=== PATIENT | male | born 1985 ===

== ENCOUNTER 2025-02-15 06:00 | Day surgery (SDC) | payer OTHER ==
[2025-02-07 08:34] LABS: BASO % 0.5 % (0.1-1.2); EOS # 0.14 (0.04-0.54); EOS % 2.2 % (0.7-7.0); LYMPH # 1.26 (1.18-3.74); LYMPH % 20.1 % (19.3-53.1); MEAN PLATELET VOLUME 10.20 fl (9.4-12.4); MONO # 0.57 (0.24-0.82); MONO % 9.1 % (4.7-12.5); NEUT # 4.26 (1.56-6.13); NEUT % 67.8 % (34.0-71.1); RED CELL DISTRIBUTION WIDTH 12.4 % (11.6-14.4)
[2025-02-07 08:36] LABS: URINE APPEARANCE Clear; URINE BILIRRUBIN Negative (NEGATIVE); URINE COLOR Yellow; URINE GLUCOSE Negative (NEGATIVE); URINE KETONE Negative (NEGATIVE); URINE LEUKOCYTE Negative; URINE NITRATE Negative; URINE PROTEIN Negative (NEGATIVE); URINE UROBILINOGEN 0.2 E.U./dl
[2025-02-07 08:37] LABS: URINE RBC 21.9 uL (0.0-20.8)
[2025-02-07 08:39] LABS: URINE BACTERIA 1.2 uL (0.0-1933); URINE BLOOD TRACE; URINE CAST 0.00 uL (0.0-1.40); URINE EPITHELIAL CELLS 1.0 uL (0.0-38.8); URINE WBC 1.3 uL (0.0-23.2)
[2025-02-07 08:52] VITALS: BP 112/76
[2025-02-07 08:57] LABS: INR 1.09
[2025-02-07 09:26] LABS: ALT/SGPT 34.0 U/L (12-78); AST/SGOT 18.0 U/L (15-37); BILIRUBIN TOTAL 1.12 mg/dL (0.3-1.2); BUN CREA RATIO 15.0 (7.0-25.0); CREATININE SERUM 1.19 mg/dL (0.70-1.30); GFR 67.71; GLOBULINA 2.5 G/DL (2.4-3.5); GLUCOSE FASTING 94.0 mg/dL (65-100); OSMOLALITY SERUM 285.0 MOSM/KG (275-295)
[~2025-02-15] VITALS: Ht 180.3 cm; Wt 97.1 kg
[2025-02-15] MEDS ORDERED: CEFAZOLIN SODIUM 1,000 MG VIAL ONE ×2 (06:34→07:15)
[2025-02-15] MEDS ORDERED: ENOXAPARIN SODIUM 40 MG/0.4 ML SYRINGE SUBCUTANEO ONE ×2 (06:34→07:15)
[2025-02-15] MEDS ORDERED: LIDOCAINE HCL 1%/EPINEPHRINE 20ML VIAL IJ ONE (07:56)
[2025-02-15] MEDS ORDERED: BUPIVACAINE HCL/MPF 0.5% 30ML VIAL ONE (07:56)
[2025-02-15] MEDS ORDERED: SUGAMMADEX SODIUM 200 MG/2 ML VIAL IV ONE (08:36)
[2025-02-15] MEDS ORDERED: ACETAMINOPHEN650 M2 PO (09:17)
[2025-02-15] MEDS ORDERED: TRAMADOL HCL50 MG PO (09:17)
[2025-02-15] MEDS ORDERED: MIRALAX510 GM PO (09:18)
[2025-02-15] MEDS ORDERED: TAMS0.4C PO (09:18)
[2025-02-15] MEDS ORDERED: SURFAK240 M1 PO (09:18)
[2025-02-15] MEDS ORDERED: NEURONTIN600 M1 PO (09:18)
== END 2025-02-15 11:45 | disposition home or self-care (01) ==
LOC: CIR.AMB 06:00
PROVIDERS: ATTEND Surgery
DX: K40.91 Unilateral inguinal hernia, without obstruction or gangrene, recurrent (principal); K42.9 Umbilical hernia without obstruction or gangrene
CPT/HCPCS: 49651; 15734; C1781